=== PATIENT | male | born 1930 | race Native Hawaiian/Other Pacific Islander ===

== ENCOUNTER 2016-05-22 10:42 | Outpatient (CLI) | payer OTHER, MEDICARE ==
[~2016-05-22 10:42] MED LIST: GABA300C2; LORA2TAB7; LOTENSIN HCT1 TAB; OMEPRAZOLE20 M1 PO; RANI150T78
[2016-05-22 11:15] LABS: PLATELET COUNT 204 K/uL (142-355)
[2016-05-22 11:43] LABS: POTASSIUM 4.2 mmol/L (3.6-5.2)
== END 2016-05-22 19:00 | disposition home or self-care (01) ==
LOC: LABW 10:42
PROVIDERS: Nurse Practitioner Family
DX: R05 Cough (principal); R50.9 Fever, unspecified; J18.8 Other pneumonia, unspecified organism; R73.09 Other abnormal glucose; R79.89 Other specified abnormal findings of blood chemistry
CPT/HCPCS: 36415; 80053; 80061; 83036; 84443; 85027

== ENCOUNTER 2016-05-30 15:14 | Outpatient (CLI) | payer OTHER, MEDICARE ==
[~2016-05-30] VITALS: Ht 172.7 cm; Wt 86.2 kg
[2016-05-30 15:50] LABS: PLATELET COUNT 325 K/uL (142-355)
[2016-05-30 15:58] LABS: POTASSIUM 3.8 mmol/L (3.6-5.2)
== END 2016-05-30 20:00 | disposition home or self-care (01) ==
LOC: INF 15:14 → LABW 15:14 → RESP 15:14 → INF 20:00
PROVIDERS: Nurse Practitioner Family
DX: I10 Essential (primary) hypertension (principal); R60.0 Localized edema; R63.5 Abnormal weight gain; I50.9 Heart failure, unspecified
CPT/HCPCS: 36415; 80053; 83880; 85027; 93306; 96374; J1940; P9047

== ENCOUNTER 2016-06-03 10:52 | Outpatient (CLI) | payer OTHER, MEDICARE | END 2016-06-03 19:35 | disposition home or self-care (01) | LOC: US 10:52 | DX: R41.82 Altered mental status, unspecified (principal); R63.5 Abnormal weight gain; R09.89 Other specified symptoms and signs involving the circulatory and respiratory systems; R60.0 Localized edema ==

== ENCOUNTER 2016-06-27 10:07 | Outpatient (CLI) | payer OTHER, MEDICARE | END 2016-06-27 19:48 | disposition home or self-care (01) | LOC: MRI 10:07 | DX: R41.3 Other amnesia (principal); R47.02 Dysphasia ==

== ENCOUNTER 2016-08-05 10:51 | Outpatient (CLI) | payer OTHER, MEDICARE ==
[2016-08-05 11:58] LABS: PLATELET COUNT 226 K/uL (142-355)
[2016-08-05 13:10] LABS: POTASSIUM 5.1 mmol/L (3.6-5.2); SODIUM 127 mmol/L (136-145)
== END 2016-08-05 19:22 | disposition home or self-care (01) ==
LOC: LABW 10:51
PROVIDERS: Nurse Practitioner Family
DX: R41.3 Other amnesia (principal); L81.8 Other specified disorders of pigmentation; F41.1 Generalized anxiety disorder; E03.8 Other specified hypothyroidism; R47.02 Dysphasia; G25.2 Other specified forms of tremor; R94.6 Abnormal results of thyroid function studies
CPT/HCPCS: 36415; 80053; 80061; 84153; 84443; 85027

== ENCOUNTER 2016-08-14 11:22 | Outpatient (CLI) | payer OTHER, MEDICARE ==
[~2016-08-14] VITALS: Ht 172.7 cm; Wt 75.3 kg
[2016-08-14 12:40] VITALS: BP 105/68; TEMP 97.5
[2016-08-14 13:15] VITALS: BP 131/72; TEMP 97.6
== END 2016-08-14 13:35 | disposition home or self-care (01) ==
LOC: INF 11:22
DX: E88.09 Other disorders of plasma-protein metabolism, not elsewhere classified (principal)
CPT/HCPCS: 96365; P9047

== ENCOUNTER 2016-08-21 12:18 | Inpatient (IN) | payer OTHER, MEDICARE ==
[~2016-08-21] VITALS: Ht 172.7 cm; Wt 72.6 kg
[2016-08-21 12:40] LABS: PLATELET COUNT 290 K/uL (142-355)
[2016-08-21 18:45] VITALS: BP 111/66; TEMP 98.6; Ht 172.7 cm; Wt 72.6 kg
[2016-08-21 20:00] VITALS: BP 108/62; TEMP 97.9
[2016-08-22 00:25] VITALS: BP 93/54; TEMP 98.3
[2016-08-22 04:00] VITALS: BP 103/63; TEMP 98.3
[2016-08-22 05:23] LABS: PLATELET COUNT 229 K/uL (142-355)
[2016-08-22 05:27] LABS: POTASSIUM 4.1 mmol/L (3.6-5.2); SODIUM 123 mmol/L (136-145)
[2016-08-22 07:45] VITALS: BP 105/73; TEMP 97.6
[2016-08-22 12:07] VITALS: BP 145/79; TEMP 97.8
[2016-08-22 16:00] VITALS: BP 117/64; TEMP 98.2
--- NOTE | 2016-08-22 18:34 | NUR ---
08/22/16 0610 RECEIVED REPORT FROM DANIEL ALATORRE RN.[email or web address]
[2016-08-22 20:00] VITALS: BP 113/65; TEMP 98
[2016-08-23] VITALS: BP 143/86; TEMP 98.1
[2016-08-23 04:00] VITALS: BP 138/77; TEMP 97.6
[2016-08-23 05:11] LABS: PLATELET COUNT 270 K/uL (142-355)
[2016-08-23 05:28] LABS: POTASSIUM 4.1 mmol/L (3.6-5.2); SODIUM 126 mmol/L (136-145)
[2016-08-23 08:00] VITALS: BP 112/71; TEMP 98.4
[2016-08-23 12:00] VITALS: BP 128/70; TEMP 98.3
[2016-08-23 16:00] VITALS: BP 117/73; TEMP 98.3
[2016-08-23 20:00] VITALS: BP 126/68; TEMP 98.9
[2016-08-24] VITALS: BP 145/61; TEMP 97.8
[2016-08-24 04:00] VITALS: BP 132/77; TEMP 97.7
[2016-08-24 07:20] LABS: PLATELET COUNT 231 K/uL (142-355)
[2016-08-24 07:44] LABS: POTASSIUM 4.8 mmol/L (3.6-5.2); SODIUM 130 mmol/L (136-145)
[2016-08-24 08:00] VITALS: BP 110/59; TEMP 98
[2016-08-24 12:00] VITALS: BP 118/75; TEMP 98.2
== END 2016-08-24 15:30 | disposition home or self-care (01) | DRG 641 ==
LOC: LABW 12:18 → MED/SURG 16:14 → UNDODEPCLI 08-22 19:22 → MED/SURG 08-24 15:30
PROVIDERS: Internal Medicine; ADMIT Nurse Practitioner Family
DX: E87.1 Hypo-osmolality and hyponatremia (principal); N17.8 Other acute kidney failure; D72.828 Other elevated white blood cell count; E03.8 Other specified hypothyroidism; K21.9 Gastro-esophageal reflux disease without esophagitis; I10 Essential (primary) hypertension
CPT/HCPCS: 36415; 80048; 80053; 81000; 82150; 83690; 83735; 84443; 85027; 86318; 96366; 96372; J1644; Q9963

== ENCOUNTER 2016-08-29 11:18 | Outpatient (CLI) | payer OTHER, MEDICARE ==
[~2016-08-29] VITALS: Ht 172.7 cm; Wt 77.1 kg
[2016-08-29 11:20] VITALS: BP 144/86; TEMP 98.4
[2016-08-29 11:44] LABS: PLATELET COUNT 213 K/uL (142-355)
[2016-08-29 12:14] LABS: POTASSIUM 4.4 mmol/L (3.6-5.2); SODIUM 131 mmol/L (136-145)
[2016-08-29 13:35] VITALS: BP 138/78; TEMP 98.4
== END 2016-08-29 19:17 | disposition home or self-care (01) ==
LOC: INF 11:18
PROVIDERS: Emergency Medicine
DX: I10 Essential (primary) hypertension (principal); E03.8 Other specified hypothyroidism; K21.9 Gastro-esophageal reflux disease without esophagitis; K44.9 Diaphragmatic hernia without obstruction or gangrene; R60.0 Localized edema; E88.09 Other disorders of plasma-protein metabolism, not elsewhere classified; E87.1 Hypo-osmolality and hyponatremia; R79.0 Abnormal level of blood mineral
CPT/HCPCS: 36415; 80053; 82728; 84439; 84443; 84481; 85027; 96365; P9047

== ENCOUNTER 2016-10-21 09:27 | Outpatient (CLI) | payer OTHER, MEDICARE | END 2016-10-21 19:26 | disposition home or self-care (01) | LOC: LABW 09:27 | DX: F06.0 Psychotic disorder with hallucinations due to known physiological condition (principal) | CPT/HCPCS: 36415; 82607; 83090; 85651; 86039; 86140 ==

== ENCOUNTER 2016-11-20 18:21 | Emergency (ER) | payer OTHER, MEDICARE ==
[~2016-11-20] VITALS: Ht 172.7 cm; Wt 75.8 kg
[2016-11-20 19:48] LABS: PLATELET COUNT 159 K/uL (142-355)
[2016-11-20 19:51] LABS: POTASSIUM 3.8 mmol/L (3.6-5.2); SODIUM 136 mmol/L (136-145)
[2016-11-20 22:12] VITALS: BP 136/77; TEMP 98.1
== END 2016-11-20 22:20 | disposition home or self-care (01) ==
LOC: ED 18:21
PROVIDERS: Emergency Medicine
DX: I10 Essential (primary) hypertension (principal); R51 Headache
CPT/HCPCS: 80053; 81000; 82550; 83880; 84443; 84484; 85027; J0360

== ENCOUNTER 2016-11-21 15:54 | Outpatient (CLI) | payer OTHER, MEDICARE | END 2016-11-21 17:00 | disposition home or self-care (01) | LOC: RESP 15:54 | DX: G61.89 Other inflammatory polyneuropathies (principal) | CPT/HCPCS: 95910 ==

== ENCOUNTER 2018-03-02 10:03 | Inpatient (IN) | payer OTHER, MEDICARE ==
[~2018-03-02] VITALS: Ht 172.7 cm; Wt 75.7 kg
[2018-03-02] VITALS (12 sets, daily range): BP systolic 109–144; BP diastolic 61–78; TEMP 97.8–98.5; Ht 172.7 cm; Wt 75.7 kg
[2018-03-02 11:10] LABS: PLATELET COUNT 129 K/uL (142-355)
[2018-03-02 11:18] LABS: POTASSIUM 3.6 mmol/L (3.6-5.2)
[2018-03-02] MEDS ORDERED: DONEPEZIL HYDRO10 MG PO (19:07)
[2018-03-02] MEDS ORDERED: OMEP40CA PO (19:07)
[2018-03-02] MEDS ORDERED: LEVO0.1224 PO (19:08)
[2018-03-02] MEDS ORDERED: BAYER ASA325 M1 PO (19:09)
[2018-03-02] MEDS ORDERED: LORA2TAB7 PO (19:12)
[2018-03-03] VITALS (7 sets, daily range): BP systolic 119–177; BP diastolic 70–98; TEMP 97.8–99
[2018-03-03 05:57] LABS: PLATELET COUNT 149 K/uL (142-355)
[2018-03-03 06:03] LABS: POTASSIUM 3.5 mmol/L (3.6-5.2)
[2018-03-04 04:00] VITALS: BP 142/68; TEMP 98.8
[2018-03-04 06:24] LABS: PLATELET COUNT 169 K/uL (142-355)
[2018-03-04 06:29] LABS: POTASSIUM 3.7 mmol/L (3.6-5.2)
[2018-03-04 08:13] VITALS: BP 161/86; TEMP 97.7
[2018-03-04 12:15] VITALS: BP 147/81; TEMP 97.7
[2018-03-04 16:09] VITALS: BP 165/95; TEMP 97.8
[2018-03-04 20:00] VITALS: BP 169/84; TEMP 97.8
[2018-03-05] VITALS: BP 134/70; TEMP 98.7
[2018-03-05 04:00] VITALS: BP 138/70; TEMP 98.5
[2018-03-05 05:37] LABS: PLATELET COUNT 165 K/uL (142-355)
[2018-03-05 06:09] LABS: POTASSIUM 3.5 mmol/L (3.6-5.2)
[2018-03-05 08:07] VITALS: BP 161/84; TEMP 98.8
[2018-03-05 12:02] VITALS: BP 177/88; TEMP 98.6
[2018-03-05 16:10] VITALS: BP 178/93; TEMP 98.6
[2018-03-05 20:00] VITALS: BP 168/89; TEMP 98.9
[2018-03-06] VITALS: BP 155/82; TEMP 98.7
[2018-03-06 04:00] VITALS: BP 170/94; TEMP 99.1
[2018-03-06 05:53] LABS: PLATELET COUNT 169 K/uL (142-355)
[2018-03-06 06:14] LABS: POTASSIUM 3.4 mmol/L (3.6-5.2)
[2018-03-06 08:01] VITALS: BP 155/87; TEMP 98.6
[2018-03-06] MEDS ORDERED: CIPR500T PO (13:45)
[2018-03-06] MEDS ORDERED: LACTTAB PO (13:46)
[2018-03-06] MEDS ORDERED: METR250T19 PO (13:47)
== END 2018-03-06 15:00 | disposition home or self-care (01) | DRG 392 ==
LOC: ED 10:03 → MED/SURG 18:55
PROVIDERS: ADMIT Family Medicine
DX: K57.20 Diverticulitis of large intestine with perforation and abscess without bleeding (principal); E87.1 Hypo-osmolality and hyponatremia; E86.0 Dehydration; I10 Essential (primary) hypertension; Z86.73 Personal history of transient ischemic attack (TIA), and cerebral infarction without residual deficits; K57.90 Diverticulosis of intestine, part unspecified, without perforation or abscess without bleeding; E03.8 Other specified hypothyroidism; F41.8 Other specified anxiety disorders; R19.7 Diarrhea, unspecified; G47.09 Other insomnia
CPT/HCPCS: 36415; 80048; 80053; 81000; 85027; 96365; 96374; 99284; J1650; J1885; J2060; J3490; Q9963

== ENCOUNTER 2018-03-30 20:32 | Emergency (ER) | payer OTHER, MEDICARE ==
[~2018-03-30] VITALS: Ht 172.7 cm; Wt 78.0 kg
[~2018-03-30 20:32] MED LIST changes: +BAYER ASA325 M1 PO; +CIPR500T PO; +DONEPEZIL HYDRO10 MG PO; +LACTTAB PO; +LEVO0.1224 PO; +LORA2TAB7 PO; +METR250T19 PO; +OMEP40CA PO
[2018-03-30 20:40] VITALS: BP 144/78; TEMP 97.8
== END 2018-03-30 22:32 | disposition home or self-care (01) ==
LOC: ED 20:32
DX: S61.411A Laceration without foreign body of right hand, initial encounter (principal); S60.221A Contusion of right hand, initial encounter; W23.0XXA Caught, crushed, jammed, or pinched between moving objects, initial encounter; Y92.89 Other specified places as the place of occurrence of the external cause
CPT/HCPCS: 99283

== ENCOUNTER 2018-04-04 08:16 | Inpatient (IN) | payer OTHER, MEDICARE ==
[~2018-04-04] VITALS: Ht 172.7 cm; Wt 76.3 kg
[2018-04-04 08:20] VITALS: BP 89/62; TEMP 99.9
[2018-04-04 10:01] LABS: PLATELET COUNT 134 K/uL (142-355)
[2018-04-04 10:07] LABS: POTASSIUM 4.8 mmol/L (3.6-5.2)
[2018-04-04 10:30] VITALS: BP 113/64; TEMP 99.4
[2018-04-04 12:08] VITALS: BP 124/59; TEMP 98.5
[2018-04-04 14:54] VITALS: BP 124/59; TEMP 98.5; Ht 172.7 cm; Wt 76.3 kg
[2018-04-04] MEDS ORDERED: TRAM50TA PO (15:54)
[2018-04-04 16:11] VITALS: BP 99/54; TEMP 98.8
[2018-04-04 20:05] VITALS: BP 124/65; TEMP 98.5
[2018-04-05] VITALS (7 sets, daily range): BP systolic 98–172; BP diastolic 58–95; TEMP 98.1–99.4
[2018-04-05 06:42] LABS: PLATELET COUNT 133 K/uL (142-355)
[2018-04-05 06:53] LABS: POTASSIUM 4.7 mmol/L (3.6-5.2)
[2018-04-06 04:00] VITALS: BP 148/77; TEMP 98.8
[2018-04-06 05:11] LABS: PLATELET COUNT 127 K/uL (142-355)
[2018-04-06 05:18] LABS: POTASSIUM 4.1 mmol/L (3.6-5.2)
[2018-04-06 08:00] VITALS: BP 159/88; TEMP 98.5
[2018-04-06 12:00] VITALS: BP 153/87; TEMP 98.3
[2018-04-06 16:00] VITALS: BP 171/90; TEMP 97.4
[2018-04-06 20:00] VITALS: BP 160/93; TEMP 98
[2018-04-07] VITALS: BP 147/79; TEMP 98
[2018-04-07 04:00] VITALS: BP 166/82; TEMP 98.2
[2018-04-07 06:37] LABS: PLATELET COUNT 137 K/uL (142-355)
[2018-04-07 08:05] VITALS: BP 161/90; TEMP 98.3
[2018-04-07 12:08] VITALS: BP 149/86; TEMP 98.3
[2018-04-07 16:05] VITALS: BP 151/88; TEMP 98.1
[2018-04-07 19:58] VITALS: BP 180/84; TEMP 98.9
[2018-04-08] VITALS: BP 160/83; TEMP 99.3
[2018-04-08 04:00] VITALS: BP 146/86; TEMP 97.6
[2018-04-08 08:02] VITALS: BP 142/89; TEMP 99.4
[2018-04-08 12:03] VITALS: BP 142/83; TEMP 98.1
[2018-04-08 13:40] LABS: PLATELET COUNT 158 K/uL (142-355)
[2018-04-08 14:01] LABS: POTASSIUM 3.8 mmol/L (3.6-5.2)
[2018-04-08 16:03] VITALS: BP 136/93; TEMP 98.9
[2018-04-08 20:00] VITALS: BP 141/83; TEMP 98.5
[2018-04-09 00:14] VITALS: BP 157/94; TEMP 98.7
[2018-04-09 04:00] VITALS: BP 130/83; TEMP 98.7
[2018-04-09 06:06] LABS: POTASSIUM 3.8 mmol/L (3.6-5.2)
[2018-04-09 08:00] VITALS: BP 151/87; TEMP 98.7
[2018-04-09 12:00] VITALS: BP 163/87; TEMP 98.7
[2018-04-09 16:01] VITALS: BP 168/83; TEMP 98.1
[2018-04-09 20:01] VITALS: BP 165/83; TEMP 98.2
[2018-04-10] VITALS: BP 151/90; TEMP 98.2
[2018-04-10 04:05] VITALS: BP 137/75; TEMP 98.2
[2018-04-10 08:00] VITALS: BP 147/89; TEMP 98.2
[2018-04-10 08:33] LABS: PLATELET COUNT 224 K/uL (142-355); POTASSIUM 3.8 mmol/L (3.6-5.2)
[2018-04-10] MEDS ORDERED: SOD CHLORIDE1 GM PO (09:36)
== END 2018-04-10 11:30 | disposition home or self-care (01) | DRG 641 ==
LOC: ED 08:16 → MED/SURG 10:48
PROVIDERS: Internal Medicine; ADMIT Family Medicine
DX: E87.1 Hypo-osmolality and hyponatremia (principal); N39.0 Urinary tract infection, site not specified; J98.11 Atelectasis; S51.811A Laceration without foreign body of right forearm, initial encounter; I12.9 Hypertensive chronic kidney disease with stage 1 through stage 4 chronic kidney disease, or unspecified chronic kidney disease; N18.3 Chronic kidney disease, stage 3 (moderate); I95.89 Other hypotension; E03.8 Other specified hypothyroidism; K21.9 Gastro-esophageal reflux disease without esophagitis; R62.7 Adult failure to thrive; J06.9 Acute upper respiratory infection, unspecified; R53.1 Weakness; R10.9 Unspecified abdominal pain; E86.1 Hypovolemia; W18.39XA Other fall on same level, initial encounter; Z91.81 History of falling; Y92.89 Other specified places as the place of occurrence of the external cause
CPT/HCPCS: 36415; 80048; 80053; 81000; 82550; 84439; 84443; 85027; 87088; 96360; 96361; 99284; J0696; J1650

== ENCOUNTER 2018-04-30 11:19 | Outpatient (CLI) | payer OTHER, MEDICARE ==
[~2018-04-30 11:19] MED LIST changes: +SOD CHLORIDE1 GM PO; +TRAM50TA PO
== END 2018-04-30 23:30 | disposition home or self-care (01) ==
LOC: RAD 11:19
DX: R05 Cough (principal)

== ENCOUNTER 2018-09-26 10:10 | Emergency (ER) | payer OTHER, MEDICARE ==
[~2018-09-26] VITALS: Ht 172.7 cm; Wt 76.2 kg
[2018-09-26] MEDS ORDERED: ATIVAN2 M1 PO (10:31)
[2018-09-26] MEDS ORDERED: EUTHYROX137 MCG PO (10:32)
[2018-09-26] MEDS ORDERED: GABA400C2 PO (10:32)
[2018-09-26 10:48] LABS: PLATELET COUNT 165 K/uL (142-355)
[2018-09-26 10:57] LABS: POTASSIUM 3.6 mmol/L (3.6-5.2); SODIUM 134 mmol/L (136-145)
[2018-09-26 12:10] VITALS: BP 109/68; TEMP 98.2
== END 2018-09-26 12:10 | disposition home or self-care (01) ==
LOC: ED 10:10
PROVIDERS: Emergency Medicine
DX: J40 Bronchitis, not specified as acute or chronic (principal); J06.9 Acute upper respiratory infection, unspecified
CPT/HCPCS: 80053; 82550; 82553; 84484; 85027; 87502; 87651; 93005; 94640; 94664; 94760; 96372; 99283; J2930

== ENCOUNTER 2018-10-08 10:03 | Outpatient (CLI) | payer OTHER, MEDICARE ==
[~2018-10-08 10:03] MED LIST changes: +ATIVAN2 M1 PO; +EUTHYROX137 MCG PO; +GABA400C2 PO
== END 2018-10-08 23:45 | disposition home or self-care (01) ==
LOC: RAD 10:03
DX: M54.5 Low back pain (principal); M25.552 Pain in left hip; S99.819A Other specified injuries of unspecified ankle, initial encounter

== ENCOUNTER 2019-04-28 08:32 | Outpatient (CLI) | payer OTHER, MEDICARE | END 2019-04-28 20:19 | disposition home or self-care (01) | LOC: US 08:32 | DX: I10 Essential (primary) hypertension (principal); N17.8 Other acute kidney failure; G57.93 Unspecified mononeuropathy of bilateral lower limbs ==

== ENCOUNTER 2019-05-13 13:10 | Emergency (ER) | payer OTHER, MEDICARE ==
[~2019-05-13] VITALS: Ht 172.7 cm; Wt 78.5 kg
[2019-05-13 14:30] VITALS: BP 149/82; TEMP 98
== END 2019-05-13 14:30 | disposition home or self-care (01) ==
LOC: ED 13:10
DX: S09.8XXA Other specified injuries of head, initial encounter (principal); S61.511A Laceration without foreign body of right wrist, initial encounter; W01.198A Fall on same level from slipping, tripping and stumbling with subsequent striking against other object, initial encounter; Y92.89 Other specified places as the place of occurrence of the external cause
CPT/HCPCS: 99283

== ENCOUNTER 2019-06-14 08:50 | Outpatient (CLI) | payer OTHER, MEDICARE ==
[2019-06-14 09:24] LABS: PLATELET COUNT 142 K/uL (142-355)
[2019-06-14 09:32] LABS: POTASSIUM 3.7 mmol/L (3.6-5.2)
== END 2019-06-14 22:46 | disposition home or self-care (01) ==
LOC: LABW 08:50
PROVIDERS: Internal Medicine
DX: I12.9 Hypertensive chronic kidney disease with stage 1 through stage 4 chronic kidney disease, or unspecified chronic kidney disease (principal); N18.3 Chronic kidney disease, stage 3 (moderate)
CPT/HCPCS: 36415; 80048; 81000; 82040; 82570; 83883; 84100; 84155; 84550; 85027; 86038

== ENCOUNTER 2019-12-22 15:59 | Emergency (ER) | payer OTHER, MEDICARE ==
[~2019-12-22] VITALS: Ht 172.7 cm; Wt 80.7 kg
[2019-12-22] MEDS ORDERED: PEPCID40 MG PO (16:43)
[2019-12-22 17:20] LABS: PLATELET COUNT 145 K/uL (142-355)
[2019-12-22 17:28] LABS: POTASSIUM 4.3 mmol/L (3.6-5.2)
[2019-12-22 21:25] VITALS: BP 113/70; TEMP 98.2
== END 2019-12-22 21:26 | disposition home or self-care (01) ==
LOC: ED 15:59
PROVIDERS: Emergency Medicine
DX: K44.9 Diaphragmatic hernia without obstruction or gangrene (principal); Z03.818 Encounter for observation for suspected exposure to other biological agents ruled out
CPT/HCPCS: 80053; 81000; 85027; 87635; 93005; 99283; U0003

== ENCOUNTER 2020-01-18 14:22 | Emergency (ER) | payer OTHER, MEDICARE ==
[~2020-01-18] VITALS: Ht 172.7 cm; Wt 80.7 kg
[~2020-01-18 14:22] MED LIST changes: +PEPCID40 MG PO
[2020-01-18 14:27] VITALS: TEMP 98.7
[2020-01-18 17:14] VITALS: BP 142/89
== END 2020-01-18 17:14 | disposition home or self-care (01) ==
LOC: ED 14:22
DX: S51.811A Laceration without foreign body of right forearm, initial encounter (principal); S41.111A Laceration without foreign body of right upper arm, initial encounter; S40.011A Contusion of right shoulder, initial encounter; W18.09XA Striking against other object with subsequent fall, initial encounter; Y92.89 Other specified places as the place of occurrence of the external cause
CPT/HCPCS: 99283; J7040

== ENCOUNTER 2020-04-10 11:07 | Outpatient (CLI) | payer OTHER, MEDICARE | END 2020-04-10 20:35 | disposition home or self-care (01) | LOC: RAD 11:07 | PROVIDERS: ATTEND Nurse Practitioner Family | DX: U07.1 COVID-19 (principal); R05 Cough ==